=== PATIENT | female | born 1990 | race Two or more races ===

== ENCOUNTER 2017-01-30 13:28 | Emergency (ER) | payer OTHER ==
[~2017-01-30] VITALS: Ht 175.3 cm; Wt 72.6 kg
[2017-01-30 13:36] VITALS: BP 117/49
== END 2017-01-30 15:30 | disposition home or self-care (01) ==
LOC: ER 13:31
DX: J06.9 Acute upper respiratory infection, unspecified (principal)
CPT/HCPCS: 99281; A4606; Z7610; Z7502

== ENCOUNTER 2017-07-25 12:55 | Emergency (ER) | payer OTHER ==
[~2017-07-25] VITALS: Ht 175.3 cm; Wt 77.1 kg
[2017-07-25 13:27] LABS: APPEARANCE,URINE Slightly Cloudy (CLEAR); BILIRUBIN,URINE Negative (NEGATIVE); BLOOD, URINE Moderate Ery/uL (NEGATIVE); COLOR,URINE Yellow (YELLOW); KETONES,URINE Negative (NEGATIVE); LEUKOCYTE ESTERASE ,URINE Moderate (NEGATIVE); NITRITE, URINE Negative (NEGATIVE); PH,URINE 6.5 (5.0-8.0); PROTEIN,URINE Negative (NEGATIVE); UGLUCOSE Negative (NEGATIVE); UROBILINOGEN,URINE 0.2 EU/dL (0.2)
[2017-07-25 13:39] LABS: BACTERIA,URINE Few /HPF (None Seen); SQUAMOUS EPITHELIAL CELL,UR Few /HPF (None Seen); WBC,URINE 51-80 /HPF (0-3)
[2017-07-25 13:42] LABS: PREGNANCY TEST URINE QUAL NEGATIVE (NEGATIVE)
--- NOTE | 2017-07-25 13:50 | NUR ---
MIGEL RIVERA AT BS.
[2017-07-25] MEDS ORDERED: NITROFURANTOIN/NITROFURAN MAC 100 MG CAPSULE PO ONE (14:30)
[2017-07-25] MEDS ORDERED: NITROFURANTOIN/NITROFURAN MAC 100 MG CAPSULE ONE (14:32)
[2017-07-25 14:50] VITALS: BP 135/69
[2017-07-27 05:09] LABS: *NEISSERIA GONORRHOEAE NAA Negative (Negative); CHLAMYDIA TRACHOMATIS NAA Negative (Negative)
== END 2017-07-25 14:50 | disposition home or self-care (01) ==
LOC: ER 12:58
DX: N39.0 Urinary tract infection, site not specified (principal); N88.8 Other specified noninflammatory disorders of cervix uteri; Z97.5 Presence of (intrauterine) contraceptive device
CPT/HCPCS: 76856; 81001; 84703; 87077; 87086; 87186; 87491; 87591; 99285; A4606; Z7610; 81000-TC

== ENCOUNTER 2017-12-11 08:41 | Emergency (ER) | payer OTHER ==
[~2017-12-11] VITALS: Ht 175.3 cm; Wt 72.6 kg
[2017-12-11 08:45] VITALS: BP 117/76
[2017-12-11] MEDS ORDERED: FLUORESCEIN SODIUM OPHTH 1 EA STRIP ONE (09:12)
[2017-12-11] MEDS ORDERED: TETRACAINE HCL/PF 0.5% UD 2 ML BOTTLE ONE (09:12)
[2017-12-11] MEDS ORDERED: FLUORESCEIN SODIUM OPHTH 1 EA STRIP OP ONE (09:30)
[2017-12-11] MEDS ORDERED: TETRACAINE HCL/PF 0.5% UD 2 ML BOTTLE RIGHTEYE ONE (09:30)
== END 2017-12-11 11:27 | disposition home or self-care (01) ==
LOC: ER 08:43
DX: H00.021 Hordeolum internum right upper eyelid (principal); H57.8 Other specified disorders of eye and adnexa
CPT/HCPCS: 99283; A4606; Z7610

== ENCOUNTER 2018-08-29 15:57 | Emergency (ER) | payer OTHER ==
[~2018-08-29] VITALS: Ht 175.3 cm; Wt 80.7 kg
[2018-08-29 17:03] LABS: APPEARANCE,URINE CLEAR (CLEAR); BILIRUBIN,URINE NEGATIVE (NEGATIVE); BLOOD, URINE NEGATIVE Ery/uL (NEGATIVE); COLOR,URINE YELLOW (YELLOW); KETONES,URINE NEGATIVE (NEGATIVE); LEUKOCYTE ESTERASE ,URINE NEGATIVE (NEGATIVE); NITRITE, URINE NEGATIVE (NEGATIVE); PH,URINE 7.5 (5.0-8.0); PROTEIN,URINE NEGATIVE (NEGATIVE); UGLUCOSE NEGATIVE (NEGATIVE); UROBILINOGEN,URINE 0.2 EU/dL (0.2)
[2018-08-29 19:05] LABS: BASOPHILS % (AUTO) 0.6 % (0.0-2.0); EOSINOPHILS % (AUTO) 1.9 % (0.0-6.0); HEMATOCRIT 41 % (33-45); HEMOGLOBIN 13.7 g/dL (11.5-14.8); LYMPHOCYTES % (AUTO) 27.5 % (20.0-44.0); MEAN CORPUSCULAR HGB CONC 34 g/dl (31.0-36.0); MEAN CORPUSCULAR VOLUME 90 fL (82-100); MONOCYTES # (AUTO) 0.6 /CMM (0.1-1.30); MONOCYTES % (AUTO) 8.1 % (2.0-12.0); NEUTROPHILS # (AUTO) 4.7 /CMM (1.8-8.9); NEUTROPHILS % (AUTO) 61.9 % (43.0-81.0); PLATELET COUNT (AUTO) 255 /CMM (150-450); RDW COEFFICIENT OF VARIATION 11.7 (11.5-15.0); RED BLOOD CELL COUNT(AUTO) 4.53 MIL/uL (4.0-5.2); WHITE BLOOD COUNT (AUTO) 7.4 K/uL (4.3-11.0)
[2018-08-29 19:14] LABS: CALCIUM, SERUM 9.4 mg/dL (8.5-10.1); CREATININE 0.7 mg/dL (0.6-1.3); POTASSIUM 3.9 mmol/L (3.5-5.1)
[2018-08-29 19:18] LABS: ALBUMIN 4.1 g/dL (3.4-5.0); BILIRUBIN,DIRECT 0.1 mg/dL (0.0-0.2); BILIRUBIN,TOTAL 0.2 mg/dL (0.2-1.0); TOTAL PROTEIN, SERUM 7.5 g/dL (6.4-8.2)
--- NOTE | 2018-08-29 19:47 | NUR ---
ASSUMED D/C CARE ONLY AT THIS TIME. PLAYING WITH HER KIDS. NO S/S OF DISTRESS NOTED AT THIS TIME. RESP EVEN AND UNLABORED. Patient discharged to home in stable condition. Written and verbal after care instructions given. Patient verbalizes understanding of instruction. Ambulatory with a steady gait
[2018-08-29 19:48] VITALS: BP 122/69
== END 2018-08-29 19:50 | disposition home or self-care (01) ==
LOC: ER 16:02
DX: R10.2 Pelvic and perineal pain (principal)
CPT/HCPCS: 36415; 76856; 80048; 80076; 81001; 83690; 84703; 85025; 99285; A4606; Z7610; 81000-TC

== ENCOUNTER 2018-11-17 14:07 | Emergency (ER) | payer OTHER ==
[~2018-11-17] VITALS: Ht 175.3 cm; Wt 78.5 kg
--- NOTE | 2018-11-17 14:20 | NUR ---
BIB SELF FROM HOME, C/O RIGHT BREAST PAIN x 4 DAYS, PS 8/10. HAD BREAST MIGEL 5 MONTHS AGO AND FOUND LIQUID, PT STATED BUMPY ON PALPATION. STATES SHE HAD A MISSED PERIOD, WITH + HOME TEST. PT IS AOX4, VSS, RESP EVEN AND UNLABORED. AMBULATORY, SKIN INTACT. SEEN BY MGAEN LONDON. WAITING FOR ORDERS
--- NOTE | 2018-11-17 14:40 | NUR ---
US TECH AT BEDSIDE
--- NOTE | 2018-11-17 14:47 | NUR ---
US COMPLETE, WAITING FOR RESULT
--- NOTE | 2018-11-17 14:58 | NUR ---
Patient discharged to home in stable condition. Written and verbal after care instructions given. Patient verbalizes understanding of instruction.
[2018-11-17 15:01] VITALS: BP 124/76
== END 2018-11-17 15:02 | disposition home or self-care (01) ==
LOC: ER 14:08
DX: O92.29 Other disorders of breast associated with pregnancy and the puerperium (principal)
CPT/HCPCS: 76642-TC; A4606

== ENCOUNTER 2019-04-08 10:45 | Emergency (ER) | payer MEDICAID, OTHER ==
[~2019-04-08] VITALS: Ht 175.3 cm; Wt 86.2 kg
--- NOTE | 2019-04-08 11:00 | NUR ---
COUGH/SOB SINCE MONDAY, FEELS WHEEZY, NONPROD COUGH, PATIENT A/OX4, BREATHING EVEN AND UNLABORED, NO DISTRESS NOTED, KEPT COMFORTABLE, WILL MONITOR.
[2019-04-08 11:16] VITALS: BP 107/69
--- NOTE | 2019-04-08 11:16 | NUR ---
RX provided and explained, Patient discharged to home in stable condition. Written and verbal after care instructions given. Patient verbalizes understanding of instruction.
== END 2019-04-08 11:17 | disposition home or self-care (01) ==
LOC: ER 10:45
DX: O99.512 Diseases of the respiratory system complicating pregnancy, second trimester (principal); J06.9 Acute upper respiratory infection, unspecified; Z3A.26 26 weeks gestation of pregnancy; Z60.2 Problems related to living alone